=== PATIENT | male | born 1955 | race Caucasian/White ===

== ENCOUNTER 2017-01-31 10:36 | Emergency (ER) | payer MEDICARE, OTHER ==
[2017-01-31 11:04] LABS: BASOPHILS % (AUTO) 1 % (0-3); EOSINOPHILS % (AUTO) 1 % (0-9); HEMATOCRIT 41 % (39-53); MEAN CORPUSCULAR HGB CONC 33.4 gm/dl (32.0-36.0); MONOCYTES % (AUTO) 10.7 % (0-12); NEUTROPHILS % (AUTO) 64.8 % (37-80)
[2017-01-31 11:14] LABS: CALCIUM 8.9 mg/dl (8.5-10.1); POTASSIUM 5.3 mMol/L (3.5-5.1)
[2017-01-31 11:16] LABS: MEAN CORPUSCULAR VOLUME 103 fL (80-100)
[2017-01-31 11:24] LABS: ANISOCYTOSIS SLIGHT AMT
[2017-01-31] MEDS ORDERED: SODIUM CHLORIDE 0.9% 1000ML 1,000 ML IV ONE (11:25)
[2017-01-31] MEDS ORDERED: ONDANSETRON HCL 4 MG/2 ML SOL ONE (11:34)
[2017-01-31] MEDS ORDERED: ONDANSETRON HCL 4 MG/2 ML SOL IV ONE (11:34)
[2017-01-31] MEDS ORDERED: SODIUM CHLORIDE 0.9% FLUSH 10 ML SOL IV PRN (12:24)
[2017-01-31 13:02] VITALS: BP 172/94; PULSE 72; RESP 18; TEMP 98.7; O2SAT 99
== END 2017-01-31 12:45 | disposition home or self-care (01) | DRG 151 ==
LOC: ED 10:36
DX: R04.0 Epistaxis (principal)
CPT/HCPCS: 30901; 36415; 80053; 85025; 85610; 96365; 96374; 99285; J2405

== ENCOUNTER 2017-02-01 11:49 | Emergency (ER) | payer OTHER ==
[2017-02-01 11:53] VITALS: TEMP 99.2
[2017-02-01] MEDS ORDERED: PHENYLEPHRINE HCL 0.5% SPR NAS ONE ×2 (12:20→12:34)
[2017-02-01 13:52] VITALS: O2SAT 97
[2017-02-01 13:53] VITALS: RESP 20
[2017-02-01 13:54] VITALS: BP 158/87; PULSE 62
[2017-02-01 21:29] LABS: BASOPHILS % (AUTO) 1 % (0-3); EOSINOPHILS % (AUTO) 0 % (0-9); HEMATOCRIT 34 % (39-53); MONOCYTES % (AUTO) 7.9 % (0-12); NEUTROPHILS % (AUTO) 76.3 % (37-80)
[2017-02-01 21:30] LABS: MEAN CORPUSCULAR VOLUME 103 fL (80-100)
[2017-02-01 21:35] LABS: ANISOCYTOSIS SLIGHT AMT
== END 2017-02-01 13:38 | disposition home or self-care (01) | DRG 151 ==
LOC: ED 11:49
DX: R04.0 Epistaxis (principal)
CPT/HCPCS: 36415; 85018; 85025; 99282; 99284; J2270; J2405

== ENCOUNTER 2017-02-01 17:24 | Emergency (ER) | payer OTHER ==
[2017-02-01 17:24] VITALS: O2SAT 97
[2017-02-01 17:48] VITALS: BP 114/88; PULSE 80; RESP 20; TEMP 98
== END 2017-02-01 17:50 | disposition home or self-care (01) | DRG 151 ==
LOC: ED 17:24
DX: R04.0 Epistaxis (principal)
CPT/HCPCS: 99282

== ENCOUNTER 2017-02-01 21:07 | Emergency (ER) | payer OTHER ==
[2017-02-01] MEDS ORDERED: PANTOPRAZOLE SODIUM 40 MG/10 ML PDS IV ONE (21:16)
[2017-02-01] MEDS ORDERED: ONDANSETRON HCL 4 MG/2 ML SOL IV ONE (21:16)
[2017-02-01] MEDS ORDERED: PANTOPRAZOLE SODIUM 40 MG/10 ML PDS ONE (21:17)
[2017-02-01] MEDS ORDERED: ONDANSETRON HCL 4 MG/2 ML SOL ONE (21:17)
[2017-02-01] MEDS ORDERED: MORPHINE SULFATE 10 MG/ML SOL IV ONE (21:43)
[2017-02-01] MEDS ORDERED: MORPHINE SULFATE 10 MG/ML SOL ONE (21:44)
[2017-02-01 22:14] VITALS: TEMP 98
[2017-02-01] MEDS ORDERED: TRAMADOL HYDROCHLORIDE 50 MG TAB PO ONE (22:50)
[2017-02-01] MEDS ORDERED: TRAMADOL HYDROCHLORIDE 50 MG TAB ONE (22:53)
[2017-02-01 23:28] VITALS: RESP 16
[2017-02-01 23:45] VITALS: BP 144/87; PULSE 80; O2SAT 98
== END 2017-02-01 23:00 | disposition home or self-care (01) | DRG 151 ==
LOC: ED 21:07
DX: R04.0 Epistaxis (principal)
CPT/HCPCS: 85025; 99284; J2270; J2405

== ENCOUNTER 2017-02-02 08:10 | Emergency (ER) | payer OTHER ==
[2017-02-02 08:18] VITALS: RESP 24; TEMP 98.5
[2017-02-02] MEDS ORDERED: MORPHINE SULFATE 10 MG/ML SOL IV ONE (08:23)
[2017-02-02] MEDS ORDERED: PANTOPRAZOLE SODIUM 40 MG/10 ML PDS IV ONE (08:26)
[2017-02-02] MEDS ORDERED: ONDANSETRON HCL 4 MG/2 ML SOL IV ONE (08:26)
[2017-02-02] MEDS ORDERED: PANTOPRAZOLE SODIUM 40 MG/10 ML PDS ONE (08:30)
[2017-02-02] MEDS ORDERED: MORPHINE SULFATE 10 MG/ML SOL ONE (08:30)
[2017-02-02] MEDS ORDERED: ONDANSETRON HCL 4 MG/2 ML SOL ONE (08:30)
[2017-02-02] MEDS ORDERED: SODIUM CHLORIDE 0.9% FLUSH 10 ML SOL IV PRN (08:45)
[2017-02-02 09:43] VITALS: BP 151/76; PULSE 69; O2SAT 100
[2017-02-02 10:51] LABS: METHADONE NEGATIVE (NEGATIVE); TRICYCLIC ANTIDEPRESSANTS NEGATIVE (NEGATIVE)
[2017-02-02 10:52] LABS: AMPHETAMINES NEGATIVE (NEGATIVE); OPIATES(OP13) POSITIVE (NEGATIVE)
[2017-02-02 10:53] LABS: METHAMPHETAMINES NEGATIVE (NEGATIVE); OXYCODONE(OXY) NEGATIVE (NEGATIVE); PROPOXYPHENE(PPX) NEGATIVE (NEGATIVE)
== END 2017-02-02 11:50 | disposition home or self-care (01) | DRG 151 ==
LOC: ED 08:10
DX: R04.0 Epistaxis (principal); D62 Acute posthemorrhagic anemia; F12.10 Cannabis abuse, uncomplicated
CPT/HCPCS: 36415; 80305; 80307; 85018; 96374; 96375; 99284; 99285; J2270; J2405

== ENCOUNTER 2018-04-15 07:25 | Day surgery (SDC) | payer OTHER ==
[2018-04-15] MEDS ORDERED: PROPOFOL 500 MG/50 ML EMU IV ONE (07:55)
[2018-04-15] MEDS ORDERED: LIDOCAINE HCL 1% MPF 30 SOL ONE (07:55)
[2018-04-15] MEDS ORDERED: ONDANSETRON HCL 4 MG/2 ML SOL ONE (08:09)
[2018-04-15 09:14] VITALS: TEMP 97.1
[2018-04-15 09:38] VITALS: RESP 18; O2SAT 95
[2018-04-15 09:44] VITALS: BP 109/74; PULSE 62
== END 2018-04-15 10:03 | disposition home or self-care (01) | DRG 392 ==
LOC: SURG 07:25
PROVIDERS: ATTEND Internal Medicine Gastroenterology
DX: K22.2 Esophageal obstruction (principal); R13.10 Dysphagia, unspecified; K44.9 Diaphragmatic hernia without obstruction or gangrene; L53.8 Other specified erythematous conditions; K29.70 Gastritis, unspecified, without bleeding
CPT/HCPCS: J2405; J2001; J2704